=== PATIENT | male | born 1985 | race African-American/Black ===

== ENCOUNTER 2020-05-12 20:26 | Emergency (ER) | payer OTHER ==
[~2020-05-12] VITALS: Ht 175.3 cm; Wt 85.3 kg
[2020-05-12 20:28] VITALS: BP 133/93
[2020-05-12] MEDS ORDERED: NOHOMEMEDICATIONS (20:31)
[2020-05-12] MEDS ORDERED: AMOXICILLIN875 MG PO (20:57)
== END 2020-05-12 21:15 | disposition home or self-care (01) ==
LOC: ER 20:26
DX: J02.0 Streptococcal pharyngitis (principal)